=== PATIENT | female | born 1965 | race Caucasian/White ===

== ENCOUNTER → 2018-06-01 10:24 | Outpatient (CLI) | payer OTHER, SELFPAY ==
[2018-06-01 12:19] LABS: Hemoglobin A1c 5.3 % (4.2-6.3)
[2018-06-01 12:24] LABS: Anion Gap 7 (5-15); BUN 14 mg/dL (7-18); BUN/Creat Ratio 14.9 RATIO (10-20); Calcium,Total 8.9 mg/dL (8.5-10.1); Chloride 106 mmol/L (98-107); Creatinine, Serum 0.94 mg/dL (0.55-1.02); EST Glomerular Filtration Rate 66 mL/min (>60); Est Glom Filt Rate - Afr Amer 80 mL/min (>60); Glucose 93 mg/dL (74-106); Potassium 4.1 mmol/L (3.5-5.1); Sodium Level 139 mmol/L (136-145); T4 Free Direct 0.89 ng/dL (0.76-1.46); Thyroid Stim Hormone (TSH) 1.13 uIU/mL (0.358-3.74)
== END ==
LOC: BFHLAB 10:25
PROVIDERS: Visit Provider Family Medicine
DX: F41.9 Anxiety disorder, unspecified (principal); G43.909 Migraine, unspecified, not intractable, without status migrainosus; F32.9 Major depressive disorder, single episode, unspecified; R73.01 Impaired fasting glucose
CPT/HCPCS: 36415; 80048; 83036; 84439; 84443

== ENCOUNTER 2018-12-28 05:44 | Emergency (ER) | payer OTHER, SELFPAY ==
[2018-12-28 05:45] VITALS: BP 147/94; PULSE 75; RESP 16; TEMP 36.5; O2SAT 99; BMI 32.2
[2018-12-28] MEDS: proCHLORPERazine 10 MG/2 ML Vial IV (06:14)
[2018-12-28] MEDS: Ketorolac 30 MG/ML Syringe IV (06:14)
[2018-12-28] MEDS: 0.9% Normal Saline 1,000 ML 999 ML IV (06:14)
[2018-12-28] MEDS: DiphenhydrAMINE 50 MG/ML Syringe 25 MG IV (06:15)
--- NOTE | 2018-12-28 06:16 | ED.VISSUMM ---
- ER Visit Summary Date of Service: 12/28/18 Chief Complaint: Headache History of Present Illness: The patient is a 53 F who presents with a headache. She woke up with her headache about 2 hours before presentation here. This is similar in character and location to her previous migraines. The pain is on the top of her head. She rates it as severe. She also developed nausea and vomiting this morning. She complains of light sensitivity which is typical of her migraines. No fall trauma head injury. She is not anticoagulated. She is on propanolol and has Imitrex as needed but did not try Imitrex this morning. Physical Examination: Blood pressure 147/94 vitals otherwise normal Patient appears uncomfortable laying on her side in a dark room with her eyes covered Moist mucous membranes Heart regular rate and rhythm Lungs clear Abdomen soft Alert and oriented with no focal or lateralizing neurological deficits normal strength normal sensation Test Results: Not indicated Emergency Department Course and Treatment: Patient was treated with IV fluids, Toradol, Compazine, Benadryl. On reevaluation she is sleeping comfortably. Patient will be discharged. Treatment Plan: [] Disposition: Discharge Impression: Migraine This note was generated with [employer] dictation software. It may contain incorrect words, spelling, and punctuation that were not noted in review of the chart prior to signing ED Disposition - Plan for ED Patient: Instructions: ED Headache Migraine Referrals: Ron Adam MD [Primary Care Provider] -
--- NOTE | 2018-12-28 06:21 | ED.DCSUM_ITS ---
- ER Visit Summary Date of Service: 12/28/18 Chief Complaint: Headache History of Present Illness: The patient is a 53 F who presents with a headache. She woke up with her headache about 2 hours before presentation here. This is similar in character and location to her previous migraines. The pain is on the top of her head. She rates it as severe. She also developed nausea and vomiting this morning. She complains of light sensitivity which is typical of her migraines. No fall trauma head injury. She is not anticoagulated. She is on propanolol and has Imitrex as needed but did not try Imitrex this morning. Physical Examination: Blood pressure 147/94 vitals otherwise normal Patient appears uncomfortable laying on her side in a dark room with her eyes covered Moist mucous membranes Heart regular rate and rhythm Lungs clear Abdomen soft Alert and oriented with no focal or lateralizing neurological deficits normal strength normal sensation Test Results: Not indicated Emergency Department Course and Treatment: Patient was treated with IV fluids, Toradol, Compazine, Benadryl. On reevaluation she is sleeping comfortably. Patient will be discharged. Treatment Plan: [] Disposition: Discharge Impression: Migraine This note was generated with [employer] dictation software. It may contain incorrect words, spelling, and punctuation that were not noted in review of the chart prior to signing ED Disposition - Plan for ED Patient: Instructions: ED Headache Migraine Referrals: Ron Adam MD [Primary Care Provider] -
--- NOTE | 2018-12-28 06:43 | ED.DEP ---
ED Disposition - Plan for ED Patient: Instructions: ED Headache Migraine Referrals: Ron Adam MD [Primary Care Provider] -
[2018-12-28 07:02] VITALS: BP 130/80; PULSE 76; RESP 16; O2SAT 98
== END 2018-12-28 07:02 | disposition home or self-care (01) ==
LOC: ED 06:15
PROVIDERS: Emergency Provider Emergency Medicine; Family Provider Family Medicine; PCP Family Medicine
DX: G43.909 Migraine, unspecified, not intractable, without status migrainosus (principal); Z72.0 Tobacco use
CPT/HCPCS: 96361; 96374; 96375; 99283; J7030; A4216

== ENCOUNTER 2019-06-15 01:48 | Emergency (ER) | payer OTHER, SELFPAY ==
[2019-06-15 01:49] VITALS: BP 116/64; PULSE 73; RESP 16; TEMP 36.4; O2SAT 96; BMI 31.5
[2019-06-15] MEDS: Metoclopramide 10 MG/2 ML Vial 5 MG IV (03:14)
[2019-06-15] MEDS: Ketorolac 30 MG/ML Syringe IV (03:14)
--- NOTE | 2019-06-15 03:15 | ED.VIS.HA ---
History of Present Illness Chief Complaint: Headache Informant: Patient Onset: Hours - 2-3 Context: Onset - woke her up from sleep Timing: Continuous Quality: Similar Prior Headaches - migraine, Throbbing Location: bifrontal; now mostly left frontal Current Severity: Severe Maximum Severity: Severe Associated Symptoms: Nausea, Vomiting, Blurred Vision, Photophobia. Negative for: Fever, Sore Throat Injury: - - no injury, recent illness Narrative: Took an Imitrex prior to arrival, it may be helped a little but she vomited around 20 minutes after taking it, not sure if she got it all, and when she started vomiting she presents to the emergency department because she felt she could not keep any pills down any longer. - Past Medical History (1) Migraines Status: Chronic Past Medical History - Allergies and Home Meds Allergies/Adverse Reactions: Allergies No Known Allergies Allergy (Verified 12/28/18 05:48) Primary Care Physician: Ron Adam MD [Primary Care Provider] - Lives: Spouse/ Significant Other Smoking Status: Current every day smoker Review of Systems General: Denies: Chills, Fever, Sweats Eyes: Reports: Blurred Vision - bilaterally. Denies: Diplopia ENT: Denies: Rhinorrhea, Sore throat Cardiovascular: Denies: Chest pain, Palpitations Respiratory: Denies: Dyspnea, Cough, Dyspnea on exertion Gastrointestinal: Reports: Nausea, Vomiting. Denies: Abdominal pain, Diarrhea, Melena, Hematochezia Genitourinary: Denies: Dysuria, Hematuria, Frequency Musculoskeletal: Denies: Neck pain, Back pain, Extremity Pain Skin: Denies: Rash, Wounds Neurological: Reports: Headache. Denies: Weakness, Numbness Physical Exam Vital Signs/Narrative: Vital Signs Temp Pulse Resp BP Pulse Ox 06/15/19 01:49 97.5 F L 73 16 116/64 96 Inital Vital Signs reviewed: Yes General: Well nourished, Well developed Head: NC, AT Eyes: Perrl, EOMI, - - photophobic Neck: Supple, No Lymphadenopathy, Nontender, No Meningismus Skin: Normal color, No rash, No Trauma Neuro: Alert, Oriented x3, Cranial nerves II-XII grossly intact, Normal Strength, Normal Sensation, Normal DTR, Normal Gait Psychological: Normal affect, Normal Mood Diagnostic/Tx/Re-eval - Medical Decision Making Patient was given Reglan and Toradol, and on reevaluation her headache is gone. I do not think she needs further work-up right now, she is well and ambulatory, and asking to be discharged, and is very pleasant. ED Disposition - Plan for ED Patient: Disposition: Home or Assisted Living Diagnosis: Migraine headache Instructions: ED, Migraine (Classical) Referrals: Ron Adam MD [Primary Care Provider] - As Needed
[2019-06-15 05:12] VITALS: BP 118/70; PULSE 75; RESP 16; O2SAT 97
== END 2019-06-15 05:13 | disposition home or self-care (01) ==
PROVIDERS: Emergency Provider Emergency Medicine; Family Provider Family Medicine; PCP Family Medicine
DX: G43.909 Migraine, unspecified, not intractable, without status migrainosus (principal); F17.200 Nicotine dependence, unspecified, uncomplicated
CPT/HCPCS: 96374; 96375; J7030

== ENCOUNTER 2019-10-17 02:55 | Emergency (ER) | payer OTHER, SELFPAY ==
[2019-10-17 02:57] VITALS: BP 113/87; PULSE 86; RESP 18; TEMP 36.6; O2SAT 96; BMI 32.4
--- NOTE | 2019-10-17 03:10 | ED.DCSUM_ITS ---
- ER Visit Summary Date of Service: 10/17/19 Chief Complaint: Headache History of Present Illness: The patient is a 53 F who presents with migraine headache that began today. Patient states the pain woke her up out of her sleep. Patient states the pain is similar to prior migraine headaches. Patient states the pain is localized to the right side of her head. Patient states her pain is worse with movement. Patient states her pain improves with rest. Patient admits to some nausea and vomiting. Patient admits to some scotoma. Patient denies any fevers or chills. Patient admits to some mild neck pain but denies any back pain. Physical Examination: Vital signs are stable. Patient is afebrile. Patient is in no acute distress. Oral mucosa is pink and moist. Neck is supple. Trachea is midline. There is no JVD noted. Heart was regular rate and rhythm. Lungs are clear and equal bilaterally. Abdomen is soft. Bowel sounds are normal. There is no tenderness. There is no rebound or guarding noted. Skin is warm dry. Cranial nerves II through XII are intact. There are no focal motor or sensory deficits noted. Extremities are intact. There is no calf tenderness or edema. Emergency Department Course and Treatment: Patient was given IV fluids, Reglan, Benadryl, and Toradol. Patient was feeling better on reevaluation. Patient was instructed to rest in a dark quiet room. Patient was instructed to follow-up with her primary care physician in 5 to 7 days. Patient understood and was agreeable with the plan. All questions were answered. Disposition: Discharge home Impression: Migraine headache This note was generated with [employer] dictation software. It may contain incorrect words, spelling, and punctuation that were not noted in review of the chart prior to signing ED Disposition - Plan for ED Patient: Disposition: Home or Assisted Living Diagnosis: Migraine headache Instructions: ED, Migraine (Classical) Referrals: Ron Adam MD [Primary Care Provider] - 5-7 Days
[2019-10-17] MEDS: 0.9% Normal Saline 1,000 ML 999 ML IV (03:17)
[2019-10-17] MEDS: Ketorolac 30 MG/ML Syringe IV (03:17)
[2019-10-17] MEDS: Metoclopramide 10 MG/2 ML Vial IV (03:17)
[2019-10-17] MEDS: DiphenhydrAMINE 50 MG/ML Syringe 25 MG IV (03:17)
[2019-10-17 04:24] VITALS: BP 114/86; PULSE 86; RESP 18; O2SAT 96
== END 2019-10-17 04:24 | disposition home or self-care (01) ==
PROVIDERS: Emergency Provider Emergency Medicine; PCP Family Medicine
DX: G43.909 Migraine, unspecified, not intractable, without status migrainosus (principal); F41.9 Anxiety disorder, unspecified; F32.9 Major depressive disorder, single episode, unspecified; Z72.0 Tobacco use; Z79.899 Other long term (current) drug therapy
CPT/HCPCS: 96361; 96374; 96375; 99283; J7030; A4216

== ENCOUNTER → 2019-11-19 13:16 | Outpatient (CLI) | payer OTHER, SELFPAY ==
[2019-11-19 16:09] LABS: Anion Gap 6 (5-15); BUN 12 mg/dL (7-18); BUN/Creat Ratio 10.9 RATIO (10-20); Chloride 103 mmol/L (98-107); EST Glomerular Filtration Rate 55 mL/min (>60); Est Glom Filt Rate - Afr Amer 66 mL/min (>60); Glucose 94 mg/dL (74-106); Potassium 3.9 mmol/L (3.5-5.1); Sodium Level 138 mmol/L (136-145); T4 Free Direct 0.99 ng/dL (0.76-1.46); Thyroid Stim Hormone (TSH) 1.37 uIU/mL (0.358-3.74)
[2019-11-19 16:11] LABS: Hemoglobin A1c 6.1 % (4.2-6.3)
== END ==
LOC: BFHLAB 13:16
PROVIDERS: PCP Family Medicine; Visit Provider Family Medicine
DX: R73.01 Impaired fasting glucose (principal); F41.9 Anxiety disorder, unspecified
CPT/HCPCS: 36415; 80048; 83036; 84439; 84443

== ENCOUNTER 2021-04-20 17:28 | Emergency (ER) | payer OTHER, SELFPAY ==
[2021-04-20 17:29] VITALS: BP 141/98; PULSE 88; RESP 18; TEMP 36.4; O2SAT 98; BMI 28.2
--- NOTE | 2021-04-20 19:10 | EKG12_ITS ---
Test Reason : DYSRHYTHMIA Blood Pressure : / mmHG Vent. Rate : 078 BPM Atrial Rate : 078 BPM P-R Int : 162 ms QRS Dur : 130 ms QT Int : 394 ms P-R-T Axes : 060 050 021 degrees QTc Int : 449 ms Normal sinus rhythm Right bundle branch block Abnormal ECG Confirmed by ANTIONETTE RAUNO, ALVARO ([id number]), health editor [place] HASSAN ([id number]) on 04/23/2021 1:35:04 PM Referred By: PL Confirmed By:PAN ADAN MD
[2021-04-20 19:45] LABS: Absolute Lymphocyte Count 1.61 X10^3/uL (0.83-4.51); Basophil# 0.07 X10^3/uL; Basophil% 0.9 % (0-1); Eosinophil# 0.33 X10^3/uL; Eosinophils% 4.3 % (0-5); Hematocrit 45.4 % (37-47); Hemoglobin 14.4 g/dL (12.0-15.0); Lymphocyte # 1.61 X10^3/ul (0.83-4.51); Lymphocyte % 21.2 % (19-41); Mean Corp Hgb Conc 31.7 g/dL (32-36); Mean Corpuscular Hgb 29.3 pg (27.0-32.0); Mean Corpuscular Volume 92.5 fL (81-99); Monocyte# 0.61 X10^3/uL; NRBC Flagged by Analyzer 0 % (0-5); Neutrophil # 4.98 X10^3/uL (2.7-7.7); Neutrophil % 65.5 % (47-70); Platelet Count 308 K/mm3 (150-450); RBC Distribution Width CV 12.1 % (11.6-14.6); RBC Distribution Width SD 41.4 fl (35.1-43.9); Red Blood Count 4.91 M/mm3 (4.2-5.4); White Blood Count 7.6 K/mm3 (4.4-11.0)
[2021-04-20 20:06] VITALS: BP 116/82; PULSE 76; RESP 13; O2SAT 95
[2021-04-20 20:07] LABS: Anion Gap 2 (5-15); BUN 18 mg/dL (7-18); BUN/Creat Ratio 19.1 RATIO (10-20); Calcium,Total 9.4 mg/dL (8.5-10.1); Chloride 104 mmol/L (98-107); Creatinine, Serum 0.94 mg/dL (0.55-1.02); EST Glomerular Filtration Rate 65 mL/min (>60); Est Glom Filt Rate - Afr Amer 79 mL/min (>60); Estimated Creatinine Clearance 62.56 ml/min; Glucose 84 mg/dL (74-106); Potassium 4.1 mmol/L (3.5-5.1); Sodium Level 135 mmol/L (136-145); Troponin-I HS 5 pg/mL (3.0-54.0)
--- NOTE | 2021-04-20 20:28 | EX.ED.DYSGE1 ---
HPI History of Present Illness Chief Complaint: Dizziness Informant: patient and spouse/S.O. Narrative Narrative: Patient reports that she think she had a panic attack today. She does have a history of these. She used to be on Ativan but they have actually gotten generally better. She was feeling fine today. Somebody mentioned that she had redness in her eye. When she looked at it she got very scared and anxious. She states she has a history of always feeling as though she is going to . When she saw this she got very anxious. She got hot and flushed which is typical for her panic attacks. She felt a little bit near syncopal but did not pass out. She has passed out before many times with her panic attacks. She never had chest pain. She did have some tingling of her fingers. This waxed and waned for about 30 minutes. She was able to calm down and now feels better. The only thing that maybe is different than other ones is that it was waxing and waning for a slightly longer period of time. Nothing specifically made it better or worse. [facility] Medical History Anxiety Depression Migraine Panic disorder Home Medications bupropion HCl 150 mg PO DAILY 03/27/17 [History Last Taken Unknown] fluoxetine 60 mg PO DAILY 03/27/17 [History Last Taken Unknown] sumatriptan succinate 50 mg PO .X1 PRN 03/27/17 [History Last Taken Unknown] propranolol 60 mg PO DAILY 12/28/18 [History Last Taken Unknown] Allergy/AdvReac Type Severity Reaction Status Date / Time No Known Allergies Allergy Verified 04/20/21 17:32 Social History Smoking Status: Current every day smoker tobacco type: cigarettes ROS ROS ED Constitutional Constitutional ED: Denies chills or fever(s) Eyes Eyes: Reports other Details: Mild tunnel vision during the event only. No visual field cut. ; Denies blurry vision or change in vision ENT ENT ED: Denies rhinorrhea or sore throat Cardiovascular Cardiovascular: Denies chest pain or palpitations Respiratory/Chest Respiratory/Chest: Denies cough or dyspnea Gastrointestinal Gastrointestinal: Denies nausea or vomiting Genitourinary Genitourinary ED: Denies dysuria Musculoskeletal Musculoskeletal: Denies back pain Integumentary Denies rash Neurologic Neurologic: Reports paresthesias; Denies headache(s) Psychiatric Psychiatric: Reports anxiety Endocrine Endocrinology: Denies polyuria Allergic/Immunologic Allergic/Immunologic ED: Denies mouth swelling or urticaria EXAM Physical Exam Const Vital Signs: 04/20/21 17:29 04/20/21 18:18 04/20/21 20:06 Temperature 97.6 F L Temperature Source Temporal Pulse Rate 88 76 Respiratory Rate 18 13 Respiratory Effort Normal Non-Labored Respiratory Pattern Normal Blood Pressure 141/98 H 116/82 H Blood Pressure Mean 112 93 Pulse Ox 98 95 Oxygen Delivery Method Room Air Room Air Positive well nourished and well developed Constitutional Narrative: Patient is having no symptoms at this time when I see her. General Appearance ED: well developed and NAD HEENT Reports moist mucous membranes Eyes Eyes Narrative: Small subconjunctival hemorrhage in the right upper eye. General Eye ED: Negative for pale conjunctiva Neck no JVD Chest Wall inspection of chest normal Resp normal respiratory effort and clear to auscultation bilaterally Cardio regular rate and regular rhythm Rate: other Other Details: Peripheral pulses are equal and normal. GI normal to inspection, nondistended, normoactive bowel sounds and non-tender Palpation: soft Back/Spine no CVA tenderness Extremity normal to inspection Extremity Narrative: No tenderness, edema, cords, asymmetry, distended veins. Pulses are normal. Neuro oriented x3 Sensorium / Orientation: alert Psych mental status grossly normal Attitude: No agitated Mood & Affect: Negative for depressed, anxious or tearful Skin no rashes or lesions noted MDM MDM MDM Narrative Medical decision making narrative: Patient's EKG shows no acute process. Her blood work is unremarkable. Her symptoms are resolved. Her symptoms were typical for her anxiety attack other than the fact that they waxed and waned longer. I think she is appropriate to go home and follow-up with her physician. Lab Data Attestation: I reviewed the patient's lab results. Labs: Laboratory Results - last 24 hr 04/20/21 04/20/21 19:38 19:38 WBC 7.6 RBC 4.91 Hgb 14.4 Hct 45.4 MCV 92.5 MCH 29.3 MCHC 31.7 L RDW Std Deviation 41.4 RDW Coeff of Kade 12.1 Plt Count 308 MPV 9.0 Immature Gran % (Auto) 0.100 Neut % (Auto) 65.5 Lymph % (Auto) 21.2 Mcleod % (Auto) 8.0 Eos % (Auto) 4.3 Baso % (Auto) 0.9 Absolute Neuts (auto) 5.0 Absolute Lymphs (auto) 1.61 Nucleated RBC % 0 Sodium 135 L Potassium 4.1 Chloride 104 Carbon Dioxide 29.0 Anion Gap 2 L BUN 18 Creatinine 0.94 Estim Creat Clear Calc 62.56 Est GFR (MDRD) Af Amer 79 Est GFR (MDRD) Non-Af 65 BUN/Creatinine Ratio 19.1 Glucose 84 Calcium 9.4 Troponin I High Sens 5 EKG Initial EKG: Comments: EKG done for lightheadedness and read by me shows normal sinus rhythm with a right bundle branch block. But there is no ectopy. There is no acute ST segment elevation or depression. VA interval, QTC are normal. There is a slight long QRS duration with her right bundle. There is no old for comparison. Discharge Plan Triage Chief Complaint: Dizziness ED Provider: Ren Cabrera Dx/Rx/DC Orders Clinical Impression: Panic attack, Subconjunctival hemorrhage of right eye Instructions: ED Panic Attack, ED Subconjunctival Hemorrhage Prescriptions: No Action sumatriptan succinate 50 MG tablet 50 mg PO .X1 PRN RF: 0 fluoxetine 20 MG capsule 60 mg PO DAILY RF: 0 bupropion HCl 150 MG Tablet.Xl 150 mg PO DAILY RF: 0 propranolol 60 MG tablet 60 mg PO DAILY RF: 0 Primary Care Provider: Ron Adam Referrals: Ron Adam MD [Primary Care Provider] - 3-5 Days if not improving Disposition Disposition: Home, Self Care
[2021-04-20 20:39] VITALS: BP 116/82; PULSE 76; RESP 13; O2SAT 95
== END 2021-04-20 20:46 | disposition home or self-care (01) ==
PROVIDERS: Emergency Provider Emergency Medicine; PCP Family Medicine
DX: F41.0 Panic disorder [episodic paroxysmal anxiety] (principal); H11.31 Conjunctival hemorrhage, right eye; F17.210 Nicotine dependence, cigarettes, uncomplicated; F32.9 Major depressive disorder, single episode, unspecified; I45.10 Unspecified right bundle-branch block
CPT/HCPCS: 80048; 84484; 85025; 93005; 99285; A4216

== ENCOUNTER 2022-07-11 06:51 | Day surgery (SDC) | payer OTHER, SELFPAY ==
--- NOTE | 2022-07-08 16:11 | EKG12_ITS ---
Test Reason : PREOP Blood Pressure : / mmHG Vent. Rate : 081 BPM Atrial Rate : 081 BPM P-R Int : 156 ms QRS Dur : 118 ms QT Int : 394 ms P-R-T Axes : 054 054 008 degrees QTc Int : 457 ms Normal sinus rhythm Normal ECG Confirmed by ARIELLA RUANO, LISSETH ([id number]), business editor MO HASSAN ([id number]) on 07/09/2022 8:50:10 AM Referred By: Yesica Hanna Confirmed By:LISSETH KRISHNAN MD
[2022-07-08 17:12] LABS: Hematocrit 44.6 % (37-47); Hemoglobin 14.9 g/dL (12.0-15.0); Mean Corp Hgb Conc 33.4 g/dL (32-36); Mean Corpuscular Volume 89.7 fL (81-99); Mean Platelet Vol. 8.9 fl (6.2-12.0); Platelet Count 282 K/mm3 (150-450); RBC Distribution Width CV 12.3 % (11.6-14.6); RBC Distribution Width SD 40.4 fl (35.1-43.9); Red Blood Count 4.97 M/mm3 (4.2-5.4); White Blood Count 9.1 K/mm3 (4.4-11.0)
[2022-07-11] MEDS: Lactated Ringers 1,000 ML 15 ML IV ×2 (07:10→09:46)
[2022-07-11 07:24] VITALS: BP 94/61; PULSE 77; RESP 17; TEMP 36.4; O2SAT 92; BMI 29.0
--- NOTE | 2022-07-11 08:30 | OV_PTH ---
PATIENT: GENO SALGADO LOC: [facility] [place] U#:[id number] AGE/SX: 56/F ROOM: RE07/11/[address]: Dr. Yesica Hanna DO : 1965 BED: DIS: 07/11/2022 SPEC #: [id number] RECD: 07/11/22 16:22 STATUS: ESTHER DOREEN #: [id number] FEDERICO: 07/11/22 08:[address]: Yesica Hanna DEPT: SURGICAL PATHOLOGY RECD BY: Gretchen Obrien ENTERED: 07/12/22 07:53 SP TYPE: OVARY OTHR DR: Dr. Ron Adam MD Tissues: Right ovary Procedures: Surgery Specimen Level IV HEADER OPERATION: Laparoscopic right oophorectomy, bilateral salpingectomy PRE-OP DIAGNOSIS: Ovarian cyst TISSUE SUBMITTED: Right ovary and cyst, bilateral fallopian tubes MICROSCOPIC DIAGNOSIS Right ovary and cyst, bilateral fallopian tubes, right oophorectomy and bilateral salpingectomy: Right ovary ? simple serous cystadenoma. Bijlateral fallopian tubes ? no pathologic diagnosis. /SJ 07/15/22 MICROSCOPIC DESCRIPTION Slides are reviewed. GROSS DESCRIPTION Received in fixative is one container labeled with the patient's name and designated right ovary and cyst, bilateral fallopian tubes. The specimen consists of a right cystic ovary and adjacent fallopian tube and left fallopian tube. The left fallopian tube measures 5 cm in length and 0.4 cm in diameter. The fimbrial end is identified. Sections reveal unremarkable cut surfaces. A detached piece of tissue is also noted measuring 1 x 0.5 x 0.5 cm. The right fallopian tube measures 5.5 cm in length and 0.5 cm in diameter. The fimbrial end is identified. No tubo-ovarian adhesions are noted. Sections reveal unremarkable cut surfaces. The partially collapsed cystic right ovary weighs 56 gm and measuring 6.0 x 5.0 x 2.0 cm. The outer surface is smooth without any papillation. The outer surface is inked. Sections reveal the ovary is replaced by the unilocular cyst and is filled with clear light yellow-richar colored fluid. No papillations are identified. The cyst wall measures 0.1 cm in thickness. Cloud Administrator sections are submitted in four cassettes as follows: 1 ? left fallopian tube and detached piece of tissue, 2 ? right fallopian tube, 3 & 4 ? cystic ovary. / JESSENIA:rg 07/12/2022 TC:1 CPT: 79263, 70558
[2022-07-11] MEDS: Bupivacaine 0.25% 30 ML Vial (08:54)
--- NOTE | 2022-07-11 09:50 | DCINST_ITS ---
Discharge Instructions Diet Discharge Diet: No restrictions Activity Discharge Activity: May Drive (Once you are no longer taking Percocet and you feel strong enough to slam on a brake or turn a steering wheel sharply) and May Shower (Once you are more than 24 hours out from surgery) May resume sexual activity in: 1 week (No intercourse, tampons, soaking in water) Ice area for (Minutes): 15 Weight Bearing Status: Weight bearing as tolerated Lifting Restrictions: Nothing heavier than 10-15 lbs for 2 weeks Dressing / Incision Call your doctor if your incision/area has: Continuous Slow Oozing, Sudden Increased Bleeding, Increased Pain/ Swelling, Increased Redness, Foul Smelling Discharge and Swelling at the incision site Call your doctor if you observe: Fever of 101 or Higher, Coldness, Increased Pain, Numbness or Tingling, Change in Color, Inability to urinate, Inability to have a bowel movement, Using more than 1 pad per hour, Shortness of breath, Dizziness, Fainting spells, Swelling in the ankles, Chest pain, Increased palpitations (irregular heartbeat), Calf discomfort and Uncontrolled pain Suture Line Care: Avoid Pulling/Pushing Cleanse incision/area with: Soap & Water Follow Up Care Please Follow Up With: Yesica Hanna DO When: 1-2 weeks Test Results: Test results from this visit will be discussed in further detail at your follow- up appointment, if applicable. Discharge Plan Admission Primary Reason for Your Visit: surgery Attending Provider: Yesica Hanna Primary Care Provider: Ron Adam Discharge Orders/Prescriptions Prescriptions: New oxycodone-acetaminophen [Percocet] 5-325 mg tablet 1 tab PO Q6H PRN (Reason: pain) 7 Days Qty: 10 0RF ibuprofen 600 mg tablet 600 mg PO Q6H PRN (Reason: pain) Qty: 30 0RF Continued methylphenidate HCl [Concerta] 27 mg tablet extended release 24hr 27 mg PO DAILY buspirone 10 mg tablet 10 mg PO DAILY sumatriptan succinate 50 MG tablet 50 mg PO .X1 PRN fluoxetine 20 MG capsule 60 mg PO DAILY propranolol 60 MG tablet 60 mg PO DAILY cholecalciferol (vitamin D3) [Vitamin D3] 25 mcg (1,000 unit) Tablet 25 mcg PO DAILY lorazepam [Ativan] 1 mg Tablet 1 mg PO DAILY PRN (Reason: Anxiety) Referrals / Follow Up: Ron Adam MD [Primary Care Provider] - Disposition Disposition (needs filled in before D/C Order can be placed): Home, Self Care
--- NOTE | 2022-07-11 09:53 | PCM.OPRPT ---
Problems Associated Problem List Diagnoses (1) Ovarian cyst: (2) Pelvic pain: Report of Operation Date of Procedure: 07/11/22 Pre-Operative Diagnosis: Ovarian cyst, pelvic pain Post-Operative Diagnosis: As above Surgery/Procedure Performed:: Laparoscopic bilateral salpingectomy, right oophorectomy with removal of large right ovarian cyst Description of Surgical Findings:: A simple appearing right ovarian cyst was present which appeared to be about 10 cm in size. Normal appearing left ovary. Normal appearing uterus and bilateral fallopian tubes. Uterine prolapse and rectocele was noted. Surgeon: Yesica Hanna transverse abdominal muscle nurse: Michelle De Type of Anesthesia: General Special Medications: None Specimen's removed: Bilateral fallopian tubes, right ovary Drains: None Estimated Blood Loss (mL): < 50 cc Fluids Replaced: 1100 cc Description of Procedure: Patient was taken to the operating room where general anesthesia was induced. She was prepped and draped in the dorsolithotomy position using yellowfin stirrups. From below a weighted speculum was placed and the anterior lip of the cervix was grasped with single-tooth tenaculum. An acorn uterine manipulator was placed. The weighted speculum was removed. Gloves were changed and attention was turned to the abdominal portion of the case. Local was infiltrated all port sites. An infraumbilical incision was made to accommodate a 5 mm port. A 5 mm port was placed under direct visualization using the laparoscope. Once confirmed intraperitoneal CO2 insufflation was initiated. No injuries were noted upon entry. Patient was placed in Trendelenburg. A right lateral 5 mm port was placed. A left lateral 5 mm port was placed. The uterus was normal-appearing. Bilateral fallopian tubes were normal-appearing. The left ovary was normal-appearing. The right ovary contained a simple appearing cyst that looked to be about 10 cm in size. The right ovary was elevated out of the pelvis and the ureter was identified. Using the LigaSure device the IP ligament was serially clamped, cauterized, and transected. Next the utero-ovarian ligament was serially clamped, cauterized, and transected. The right ovary with the large ovarian cyst was removed and placed in the pelvis. The right uterus was identified again and peristalsis was noted. The infraumbilical incision was extended to accommodate a 15 mm laparoscopic bag. This 15 mm laparoscopic bag was inserted through the infraumbilical incision and opened. The right ovary and cyst were placed in the bag. The bag was brought up to the infraumbilical incision. The cyst wall was then ruptured and aspirated for about 300 cc of clear fluid. There was no spill into the abdominal cavity. The bag containing the right ovary and cyst were removed and sent to pathology for review. The fascia was then closed in a running fashion. The abdomen was then insufflated again. The pelvis was inspected and noted to be hemostatic. All ports were removed and the abdomen was exsufflated. Skin was closed with Monocryl and glue. All instruments were removed from the vagina from below. A vaginal sweep was performed. Instrument, sharp, sponge counts were correct. Patient was taken to recovery room in stable condition. The pediatric physician assistant Dr. Michelle De was present for the entire procedure. She assisted with draping the patient, removing the right ovary and tube, and closure. Grafts/Implants Used: None Procedure Start Time: 08:54 Procedure Stop Time: 09:54 Complications None Admit VTE Documentation VTE Present on Admission: No VTE Mechan Device Prophylaxis: SCD's
[2022-07-11 10:05] VITALS: BP 111/87; BP 94/61; PULSE 65; RESP 16; TEMP 36.2; O2SAT 95
[2022-07-11 10:15] VITALS: BP 116/73; BP 94/61; PULSE 64; RESP 16; O2SAT 94
[2022-07-11 10:30] VITALS: BP 125/65; BP 94/61; PULSE 66; RESP 16; TEMP 36.4; O2SAT 95
[2022-07-11 11:20] VITALS: BP 110/70; BP 94/61; PULSE 82; RESP 18; O2SAT 94
[2022-07-11] MEDS: Ibuprofen 200 MG Tablet 600 MG PO (11:29)
== END 2022-07-11 11:54 | disposition home or self-care (01) ==
LOC: SDC 06:51 → AC 06:52
PROVIDERS: PCP Family Medicine; Referring Provider Obstetrics & Gynecology; Visit Provider Obstetrics & Gynecology
PROC: (CPT 58661; principal; 2022-07-11 08:15)
DX: N83.201 Unspecified ovarian cyst, right side (principal); R10.2 Pelvic and perineal pain; F98.8 Other specified behavioral and emotional disorders with onset usually occurring in childhood and adolescence; F17.210 Nicotine dependence, cigarettes, uncomplicated; F41.9 Anxiety disorder, unspecified; F32.9 Major depressive disorder, single episode, unspecified; Z98.51 Tubal ligation status; N81.4 Uterovaginal prolapse, unspecified
CPT/HCPCS: 58661; 00840; 36415; 85027; 86850; 86900; 86901; 88305; 93005; J7120; J2405